=== PATIENT | male | born 1995 | race Hispanic/Latino ===

== ENCOUNTER 2023-11-14 07:08 | Emergency (ER) | payer SELFPAY ==
[2023-11-14 07:58] LABS: Absolute Eosinophils 0.1 K/uL (0-0.5); Absolute Lymphocytes (CBC) 1.9 K/uL (0.7-4.9); Absolute Monocytes 0.5 K/uL (0.1-1.3); Absolute Neutrophil 4.4 K/uL (1.8-8.0); Basophils % 0.4 % (0-1.3); Hematocrit 38.7 % (39.6-49.0); Lymphocytes % 27.1 % (15.3-44.8); MCH 28.7 pg (27.0-35.0); MCHC 33.6 g/dL (32.0-36.0); MCV 85.5 fL (80-100); MPV 7.2 fL (7.6-11.3); Monocytes % 7.3 % (3.3-12.3); Neutrophils % 63.2 % (41.7-73.7); Platelets 266 thou/uL (152-406); RBC Red Blood Cell Count 4.52 M/uL (4.33-5.43); Red Cell Distribution Width 13.6 % (12.1-15.2)
[2023-11-14 08:03] LABS: Specific Gravity 1.027 (1.005-1.030); Sqamous Epithelial None Seen /HPF (None Seen); Urine Bacteria <20 /HPF (<20); Urine Bilirubin NEGATIVE (Negative); Urine Blood Negative (Negative); Urine Clarity Clear (Clear); Urine Color Light-Yellow (Yellow); Urine Culture Reflex Order NOT NEEDED; Urine Glucose NEGATIVE (Negative); Urine Ketones NEGATIVE (Negative); Urine Microscopic Reflex YN ORDER UMIC; Urine Mucus Slight /HPF (None Seen); Urine Nitrite NEGATIVE (Negative); Urine Protein NEGATIVE (Negative); Urine RBC <5 /HPF (None Seen); Urine Urobilinogen Normal (Normal); Urine WBC None Seen /HPF (<5); Urine pH 6.5 (5.0-7.0)
[2023-11-14 08:09] LABS: Barbiturates NEGATIVE (NEGATIVE); Benzodiazepines NEGATIVE (NEGATIVE); Cocaine NEGATIVE (NEGATIVE); METHAMPHETAM NEGATIVE (NEGATIVE); Methadone NEGATIVE (NEGATIVE); Opiates NEGATIVE (NEGATIVE); Phencyclidine NEGATIVE (NEGATIVE); THC Cannibis NEGATIVE (NEGATIVE)
[2023-11-14 08:10] LABS: PTT, Activated Partial Thromb 24.1 SECONDS (24.3-36.9); Protime INR 1.07
--- NOTE | 2023-11-14 08:18 | RAD REPORT ---
EXAM DESCRIPTION: CT - CTHCSPWOC - 11/14/2023 7:59 am CLINICAL HISTORY: Syncope;Trauma COMPARISON: No comparisons TECHNIQUE: Axial thin cut noncontrast CT images of the head were obtained. Axial thin cut noncontrast CT images of the cervical spine were obtained. Multiplanar reformatted images were generated and reviewed. All CT scans are performed using dose optimization technique as appropriate and may include automated exposure control or mA/KV adjustment according to patient size. FINDINGS: CT HEAD WITHOUT CONTRAST: No acute hemorrhage, hydrocephalus or extra-axial collection is identified.No areas of brain edema or midline shift. The paranasal sinuses and mastoids are clear.The calvarium is intact. CT CERVICAL SPINE WITHOUT CONTRAST: No fracture or subluxation. Straightening of normal cervical lordosis which may be positional or seco ndary to muscle spasm. No prevertebral soft tissues swelling is identified. IMPRESSION: No acute traumatic intracranial or cervical spine findings.
--- NOTE | 2023-11-14 08:21 | RAD REPORT ---
EXAM DESCRIPTION: CT - CTFB CLINICAL HISTORY: TRAUMA COMPARISON: Head C Spine Mpr Wo Con dated 11/14/2023 TECHNIQUE: Axial thin cut noncontrast CT images of the face were obtained with sagittal and coronal reconstruction images. All CT scans are performed using dose optimization technique as appropriate and may include automated exposure control or mA/KV adjustment according to patient size. FINDINGS: No acute facial bone fracture is seen. Mild swelling and debris along the skin of the nasa l bridge.The mandible is intact. The globes and orbital contents are grossly unremarkable.The paranasal sinuses and mastoids are clear . IMPRESSION: Negative for facial bone fracture. Mild swelling and debris along the skin of the nasal bridge.
[2023-11-14 08:22] LABS: ALT/SGPT 35 U/L (16-61); AST/SGOT 24 U/L (15-37); Albumin 3.9 g/dL (3.4-5.0); Albumin/Globulin Ratio 1.1 (1.1-1.8); Alkaline Phosphatase 103 U/L (45-117); Anion Gap 8.1 mEq/L (5.0-15.0); BUN Blood Urea Nitrogen 23 mg/dL (7-18); Bicarbonate 28 mEq/L (21-32); Bilirubin Direct < 0.2 mg/dL (0-0.2); Bilirubin Indirect, Calculated 0.1 mg/dL (0.2-0.8); Bilirubin Total 0.3 mg/dL (0.2-1.0); Globulin 3.6 g/dL (2.3-3.5); Glomerular Filtration Rate 100 ml/min (=/>90); Glucose Level 114 mg/dL (74-106); Magnesium 1.9 mg/dL (1.6-2.4); Potassium 3.1 mEq/L (3.5-5.1); Protein, Total 7.5 g/dL (6.4-8.2); Sodium Level 137 mEq/L (136-145); Troponin High Sensitivity 4.2 pg/mL (<58.9)
[2023-11-14] MEDS ORDERED: POTASSIUM 25 MEQ EFFERV TAB ONE (08:34)
--- NOTE | 2023-11-14 08:48 | RAD REPORT ---
EXAM DESCRIPTION: Monica Single View11/14/2023 8:13 am CLINICAL HISTORY: syncope COMPARISON: No comparisons TECHNIQUE: Portable AP view of the chest. FINDINGS: The lungs are clear. No pneumothorax or effusion. The cardiomediastinal contours are unre markable. IMPRESSION: No acute cardiopulmonary process.
--- NOTE | 2023-11-14 08:52 | ER ---
Nurse's Notes [facility] Name: Noble Galvan Age: 28 yrs Sex: Male : 1995 Arrival Date: 11/14/2023 Time: 07:08 Bed 8 Private MD: Diagnosis: Syncope, vasovagal syncope, nasal abrasion, closed head injury Presentation: 11/13 07:11 Chief complaint: Patient states: Pt brought in via EMS with c/o passing out during a dd2 safety meeting. Per EMS, placed pt in ambulance, luigi down to the 40s and passed out again. Coronavirus screen: At this time, the client does not indicate any symptoms associated with coronavirus-19. Ebola Screen: No symptoms or risks identified at this time. Initial Sepsis Screen: Does the patient meet any 2 criteria? No. Patient's initial sepsis screen is negative. Does the patient have a suspected source of infection? No. Patient's initial sepsis screen is negative. Risk Assessment: Do you want to hurt yourself or someone else? Patient reports no desire to harm self or others. Onset of symptoms was November 14, 2023. 07:11 Method Of Arrival: EMS: [facility] dd2 07:11 Acuity: ABDI 3 dd2 Triage Assessment: 07:14 General: Appears in no apparent distress. Behavior is calm, cooperative. Pain: dd2 Complains of pain in nose. Historical: - Allergies: 07:14 No Known Allergies; dd2 - Home Meds: 07:14 None [Active]; dd2 - PMHx: 07:14 None; dd2 - PSHx: 07:14 None; dd2 - Immunization history:: Adult Immunizations unknown. - Infectious Disease History:: Denies. - Social history:: Smoking status: Patient denies any tobacco usage or history of. Screenin:19 [facility] ED Fall Risk Assessment (Adult) History of falling in the last 3 months, dd2 including since admission Yes- single mechanical fall (1 pt) Confusion or Disorientation No (0 pts) Intoxicated or Sedated No (0 pts) Impaired Gait No (0 pts) Mobility Assist Device Used No (0 pt) Altered Elimination No (0 pt) Score/Fall Risk Level 0 - 2 = Low Risk Oriented to surroundings, Maintained a safe environment, Hourly rounding (assess needs \T\ fall precautionary measures) done. Abuse screen: Denies threats or abuse. Nutritional screening: No deficits noted. Tuberculosis screening: No symptoms or risk factors identified. Assessment: 07:19 General: Appears in no apparent distress. Behavior is calm, cooperative. Pain: dd2 Complains of pain in nose. Neuro: No deficits noted. Cardiovascular: Reports lightheadedness, syncope, Heart tones S1 S2 Rhythm is sinus bradycardia. Respiratory: No deficits noted. GI: No deficits noted. : No deficits noted. EENT: No deficits noted. Derm: No deficits noted. Musculoskeletal: No deficits noted. Injury Description: Laceration sustained to bridge of nose is dried bright red blood noted was sustained less than 30 minutes ago. a small amount of bleeding noted at this time. Vital Signs: 07:11 BP 119 / 52; Pulse 58; Resp 15; Temp 98.1; Pulse Ox 100% ; Weight 70.76 kg; Height 5 dd2 ft. 6 in. ; 08:47 BP 117 / 70; Pulse 69; Resp 14; Pulse Ox 100% ; ko1 07:11 Body Mass Index 25.18 (70.76 kg, 167.64 cm) dd2 ED Course: 07:10 Patient arrived in ED. dd2 07:10 PAWAN ALVES, RN is Primary Nurse. dd2 07:11 Annelise Lee MD is Attending Physician. sp3 07:14 Triage completed. dd2 07:14 Arm band placed on right wrist. Patient placed in an exam room, on a stretcher, on dd2 pulse oximetry. 07:19 Patient has correct armband on for positive identification. Bed in low position. Call dd2 light in reach. Side rails up X2. Provided Education on: fall risk, call light. Warm blanket given. 07:19 Client placed on continuous cardiac and pulse oximetry monitoring. NIBP monitoring dd2 applied. 07:19 Maintain EMS IV. Dressing intact. Good blood return noted. Site clean \T\ dry. Gauge \T\ dd 2 site: 20g lt AC. Flushed with 10 mL NS IV is patent, is intact, with good blood return, Flushed left antecubital. 07:27 Primary Nurse role handed off by PAWAN ALVES, RN bd 07:40 PAWAN ALVES, RN is Primary Nurse. dd2 07:53 EKG done, by control room technician. reviewed by Annelise Lee MD. oh1 07:55 Basic Metabolic Panel Sent. dd2 07:55 CBC with Diff Sent. dd2 07:55 Hepatic Function Sent. dd2 07:55 Magnesium Sent. dd2 07:55 Protime (+inr) Sent. dd2 07:55 Ptt, Activated Sent. dd2 07:55 Troponin High Sensitivity Sent. dd2 07:55 UDS Sent. dd2 07:55 Urinalysis w/ reflexes Sent. dd2 07:55 Initial lab(s) drawn, by tx, sent to lab. Urine collected: clean catch specimen, clear. dd2 08:01 CT Head C Spine In Process Unspecified. EDMS 08:01 CT Facial Bones W/O Con In Process Unspecified. EDMS 08:14 Chest Single View XRAY In Process Unspecified. EDMS 09:09 IV discontinued, intact, bleeding controlled, No redness/swelling at site. Pressure dd2 dressing applied. 09:09 No provider procedures requiring assistance completed. dd2 Administered Medications: 08:36 Drug: Potassium PO Effervescent Tablet 50 mEq PO once; dissolve in 4 ounces of water or ko1 juice Route: PO; 09:06 Follow up: Response: No adverse reaction dd2 Medication: 07:19 VIS not applicable for this client. dd2 Outcome: 08:52 Discharge ordered by . sp3 09:08 Discharged to home ambulatory, dd2 09:08 Condition: stable 09:08 Discharge instructions given to patient, Instructed on discharge instructions, follow up and referral plans. Demonstrated understanding of instructions, follow-up care, 09:10 Patient left the ED. dd2 Signatures: Dispatcher [employer] EDMS Leslie Day Setul, MD MD sp3 Aminah Christiansen, HAIR RN ko1 PAWAN ALVES RN RN dd2 Alanna Zamudio oh1
--- NOTE | 2023-11-14 08:52 | EDPHYS ---
Physician Documentation [facility] Name: Noble Galvan Age: 28 yrs Sex: Male : 1995 Arrival Date: 11/14/2023 Time: 07:08 Bed 8 Private MD: ED Physician Annelise Lee HPI: 11/13 07:40 This 28 yrs old Male presents to ER via EMS with complaints of syncope, facial injury. sp3 07:40 28-year-old male with no past medical history presents by EMS for a syncopal episode sp3 that occurred during a safety meeting while at work. Patient was standing and suddenly felt the urge to have a bowel movement and then felt himself passing out subsequently fully passing out and falling face first onto furniture/floor. Patient has a laceration/abrasion superficially on the superior aspect of his nose. No seizure activity reported however bystanders to report mild shaking/tremor immediately after falling during which patient was lucid. Currently patient feels normal with no symptoms. Upon history, patient states that the last time he gave blood he had a similar feeling. Also during the EMS transport here when the medics started his IV, he also had a similar episode which subsequently resolved. During that time EMS reports bradycardia into the 40s. Patient currently denies fever, headache, neck pain, chest pain, shortness of breath, abdominal pain, nausea, vomiting, diarrhea, rash, known sick contacts, travel history, or any other signs or symptoms on ROS at this time.. Historical: - Allergies: 07:14 No Known Allergies; dd2 - Home Meds: 07:14 None [Active]; dd2 - PMHx: 07:14 None; dd2 - PSHx: 07:14 None; dd2 - Immunization history:: Adult Immunizations unknown. - Infectious Disease History:: Denies. - Social history:: Smoking status: Patient denies any tobacco usage or history of. ROS: 07:42 Constitutional: Negative for fever, chills, and weight loss, Eyes: Negative for injury, sp3 pain, redness, and discharge, ENT: Negative for injury, pain, and discharge, Neck: Negative for injury, pain, and swelling, Respiratory: Negative for shortness of breath, cough, wheezing, and pleuritic chest pain, Abdomen/GI: Negative for abdominal pain, nausea, vomiting, diarrhea, and constipation, Back: Negative for injury and pain, MS/Extremity: Negative for injury and deformity, Skin: Negative for injury, rash, and discoloration, Psych: Negative for depression, anxiety, suicide ideation, homicidal ideation, and hallucinations, Allergy/Immunology: Negative for hives, rash, and allergies, Endocrine: Negative for neck swelling, polydipsia, polyuria, polyphagia, and marked weight changes, Hematologic/Lymphatic: Negative for swollen nodes, abnormal bleeding, and unusual bruising, 07:42 All other systems are negative, Exam: 07:42 Constitutional: This is a well developed, well nourished patient who is awake, alert, sp3 and in no acute distress. Eyes: Pupils equal round and reactive to light, extra-ocular motions intact. Lids and lashes normal. Conjunctiva and sclera are non-icteric and not injected. Cornea within normal limits. Periorbital areas with no swelling, redness, or edema. ENT: Nares patent. No nasal discharge, no septal abnormalities noted. External auditory canals are clear. Oropharynx with no redness, swelling, or masses, exudates, or evidence of obstruction, uvula midline. Mucous membranes moist. Neck: Trachea midline, no thyromegaly or masses palpated, and no cervical lymphadenopathy. Supple, full range of motion without nuchal rigidity, or vertebral point tenderness. No Meningismus. Chest/axilla: Normal chest wall appearance and motion. Nontender with no deformity. No lesions are appreciated. Cardiovascular: Regular rate and rhythm with a normal S1 and S2. No gallops, murmurs, or rubs. Normal PMI, no JVD. No pulse deficits. Respiratory: Lungs have equal breath sounds bilaterally, clear to auscultation and percussion. No rales, rhonchi or wheezes noted. No increased work of breathing, no retractions or nasal flaring. Abdomen/GI: Soft, non-tender, with normal bowel sounds. No distension or tympany. No guarding or rebound. No evidence of tenderness throughout. Back: No spinal tenderness. No costovertebral tenderness. Full range of motion. Skin: Warm, dry with normal turgor. Normal color with no rashes, no lesions, and no evidence of cellulitis. MS/ Extremity: Pulses equal, no cyanosis. Neurovascular intact. Full, normal range of motion. Neuro: Awake and alert, GCS 15, oriented to person, place, time, and situation. Cranial nerves II-XII grossly intact. Motor strength 5/5 in all extremities. Sensory grossly intact. Cerebellar exam normal. Normal gait. Psych: Awake, alert, with orientation to person, place and time. Behavior, mood, and affect are within normal limits. 07:42 Head/face: 2 cm superficial laceration to the superior aspect of the nose just inferior sp3 to the eyebrow line. No repair needed. Multiple abrasions on the forehead also noted.. 08:50 ECG was reviewed by the Attending Physician. EKG demonstrates normal sinus rhythm at 60 sp3 bpm with normal intervals, normal QRS, slightly high voltage and normal axis ST segments without evidence of acute ischemia. Vital Signs: 07:11 BP 119 / 52; Pulse 58; Resp 15; Temp 98.1; Pulse Ox 100% ; Weight 70.76 kg; Height 5 dd2 ft. 6 in. ; 08:47 BP 117 / 70; Pulse 69; Resp 14; Pulse Ox 100% ; ko1 07:11 Body Mass Index 25.18 (70.76 kg, 167.64 cm) dd2 MDM: 07:13 Patient medically screened. sp3 07:43 Data reviewed: vital signs, nurses notes, EMS record, lab test result(s), EKG, sp3 radiologic studies. ED course: 28-year-old male with no past medical history now with syncopal episode and vasovagal syncope type symptoms on multiple occurrences. Differential diagnosis includes vasovagal syncope, electrolyte disturbance, cardiac arrhythmia, other intracranial pathology, seizure, among others. Workup will include CT scan of the C-spine, head and facial bones given the trauma, laboratory values, EKG, urinalysis, UDS, and general supportive care. I do not believe patient had a seizure. Orthostatics also pending. If workup negative, we will safely discharge patient home with general precautions and follow-up with PCP. Further workup and consultation as indicated based on workup and diagnostics. I discussed with patient and and both are on board with this plan. 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 08:51 ED course: Workup negative including CT scan. Wound cleaned and dressed. EKG is normal. sp3 Vital signs continue to be normal including heart rate. At this time we will safely discharge patient home with general precautions and diagnosis of vasovagal syncope.. 11/13 07:39 Order name: Basic Metabolic Panel; Complete Time: 08:27 sp3 11/13 07:39 Order name: CBC with Diff; Complete Time: 08:27 sp3 11/13 07:39 Order name: Hepatic Function; Complete Time: 08:27 sp3 11/13 07:39 Order name: Magnesium; Complete Time: 08:27 sp3 11/13 07:39 Order name: Protime (+inr); Complete Time: 08:27 sp3 11/13 07:39 Order name: Ptt, Activated; Complete Time: 08:27 sp3 11/13 07:39 Order name: Troponin High Sensitivity; Complete Time: 08:27 sp3 11/13 07:39 Order name: UDS; Complete Time: 08:27 sp3 11/13 07:39 Order name: Urinalysis w/ reflexes; Complete Time: 08:27 sp3 11/13 07:39 Order name: CT Head C Spine; Complete Time: 08:27 sp3 11/13 07:39 Order name: Chest Single View XRAY; Complete Time: 08:49 sp3 11/13 07:39 Order name: CT Facial Bones W/O Con; Complete Time: 08:27 sp3 11/13 07:39 Order name: EKG; Complete Time: 07:40 sp3 11/13 07:39 Order name: Cardiac monitoring; Complete Time: 07:52 sp3 11/13 07:39 Order name: EKG - Nurse/Tech; Complete Time: 07:52 sp3 11/13 07:39 Order name: IV Saline Lock; Complete Time: 07:41 sp3 11/13 07:39 Order name: Labs collected and sent; Complete Time: 08:23 sp3 11/13 07:39 Order name: NPO; Complete Time: 07:41 sp3 11/13 07:39 Order name: O2 Sat Monitoring; Complete Time: 07:41 sp3 11/13 07:39 Order name: Orthostatics; Complete Time: 07:41 sp3 Administered Medications: 08:36 Drug: Potassium PO Effervescent Tablet 50 mEq PO once; dissolve in 4 ounces of water or ko1 juice Route: PO; 09:06 Follow up: Response: No adverse reaction dd2 Disposition Summary: 08/14/24 08:52 Discharge Ordered Notes: Location: Home sp3 Condition: Stable sp3 Diagnosis - Syncope, vasovagal syncope, nasal abrasion, closed head injury sp3 Followup: sp3 - With: Private Physician - When: Upon discharge from the Emergency Department - Reason: Continuance of care Discharge Instructions: - Discharge Summary Sheet sp3 - Syncope sp3 Forms: - Medication Reconciliation Form sp3 - Antibiotic Education sp3 - Prescription Opioid Use sp3 - Patient Portal Instructions sp3 - Leadership Thank You Letter sp3 Signatures: Dispatcher [employer] Annelise Pierre MD MD sp3 Aminah Christiansen RN RN ko1 PAWAN ALVES RN RN dd2
[2023-11-14 09:20] VITALS: TEMP 98.1; O2SAT 100
[2023-11-14 09:22] VITALS: BP 117/70
== END 2023-11-14 09:10 | disposition home or self-care (01) ==
LOC: ER 07:08
DX: R55 Syncope and collapse (principal); S00.31XA Abrasion of nose, initial encounter; S09.90XA Unspecified injury of head, initial encounter; W18.30XA Fall on same level, unspecified, initial encounter
CPT/HCPCS: 36415; 70450; 70486; 71045; 72125; 76377; 80048; 80076; 80307; 81001; 83735; 84484; 85025; 85610; 85730; 93005